=== PATIENT | male | born 1995 | race Caucasian/White ===

== ENCOUNTER 2017-03-07 00:07 | Emergency (ER) | payer BC ==
[2017-03-07 00:17] VITALS: PULSE 65; O2SAT 95
--- NOTE | 2017-03-07 01:35 | EDPHY ---
H & P Stated Complaint: Hit nose, was bleeding, no longer bleeding. Time Seen by Provider: 03/07/17 01:23 HPI/ROS: HPI The patient presents with epistaxis of left naris, now resolved. This began at 2:00 p.m. when he forcefully hit his knee to his nose. He has mild nasal swelling, he has been able to breathe through his nose, however is been trickling blood for several hours. He thinks he has lost a significant amount of blood. He has no prior history of nose bleed the pain is achy, improved, mild in severity. REVIEW OF SYSTEMS Constitutional: No fever, no chills. Eyes: No discharge. ENT: No sore throat. Cardiovascular: No chest pain, no palpitations. Respiratory: No cough, no shortness of breath. Gastrointestinal: No abdominal pain, no vomiting. Genitourinary: No hematuria. Musculoskeletal: No back pain. Skin: No rashes. Neurological: No headache. PMHx: Healthy Soc Hx: [facility] student PHYSICAL General Appearance: Alert, no distress Eyes: Pupils equal and round no pallor or injection ENT, Mouth: Left nares with no active bleeding, there is some dried blood within the nasal turbinates, there is mild swelling at the nasal bridge with no obvious deformity Mucous membranes moist Respiratory: Breathing comfortably Neurological: A&O, moves all extremities Skin: Warm and dry, no rashes Musculoskeletal: Neck is supple non tender Extremities: symmetrical, full range of motion Psychiatric: Patient is oriented X 3, there is no agitation Source: Patient Exam Limitations: No limitations - Personal History Current Tetanus/Diphtheria Vaccine: Unsure Current Tetanus Diphtheria and Acellular Pertussis (TDAP): Unsure - Medical/Surgical History Hx Asthma: No Hx Chronic Respiratory Disease: No Hx Diabetes: No Hx Cardiac Disease: No Hx Renal Disease: No Hx Cirrhosis: No Hx Alcoholism: No Hx HIV/AIDS: No Hx Splenectomy or Spleen Trauma: No Other PMH: Concussion. - Social History Smoking Status: Never smoked Constitutional: Initial Vital Signs Temperature (C) 36.6 C 03/07/17 00:13 Heart Rate 65 03/07/17 00:13 Respiratory Rate 16 03/07/17 00:13 Blood Pressure 124/61 H 03/07/17 00:13 O2 Sat (%) 95 03/07/17 00:13 O2 Delivery Mode Room Air Allergies/Adverse Reactions: No Known Allergies Allergy (Unverified 03/07/17 00:17) Home Medications: Medication Instructions Recorded Adderall 10 mg Tablet 03/07/17 FLUoxetine 03/07/17 Medical Decision Making Differential Diagnosis: 21-year-old man presents with trauma to his nose several hours ago with epistaxis that lasted for several hours, now improved. Is on exam, he has normal vital signs, he has no active bleeding, there is dried blood in in his left naris. His nasal trauma likely caused acute anterior epistaxis. This seems to be well controlled. He may have sustained a nasal bone fracture and I have explained this to him. As I have advised him to follow up with [facility] if he is having any difficulty breathing through his nose or deformity. We have discussed Afrin and nasal clamps if bleeding returns. Departure - Departure Disposition: Home, Routine, Self-Care Clinical Impression: Epistaxis Blunt trauma of nose Qualifiers: Encounter type: initial encounter Qualified Code(s): S09.92XA - Unspecified injury of nose, initial encounter Condition: Good Instructions: Nosebleed (ED) Additional Instructions: You may have a broken nose. If you notice that your nose does not look normal to you or if you are having any difficulty breathing through your nose, you should follow up with the Ear Nose and Throat doctors. Otherwise, I would like you to use Afrin and a nasal clamp if the bleeding returns. Referrals: Josh Flores MD [Medical Doctor] - As per Instructions
[2017-03-07 01:47] VITALS: BP 118/68; RESP 18; TEMP 98.1
== END 2017-03-07 01:46 | disposition home or self-care (01) ==
DX: S09.92XA Unspecified injury of nose, initial encounter (principal); R04.0 Epistaxis; X58.XXXA Exposure to other specified factors, initial encounter; Y99.8 Other external cause status